=== PATIENT | female | born 1970 | race Caucasian/White ===

== ENCOUNTER 2022-05-26 00:48 | Emergency (ER) | payer SELFPAY ==
[~2022-05-26] VITALS: Ht 170.2 cm; Wt 86.4 kg
[2022-05-26 01:20] VITALS: TEMP 98.1
[2022-05-26 01:35] LABS: COLLECTION METHOD CLEAN CATCH
[2022-05-26 01:39] LABS: BASO # 0.1 K/mm3 (0.0-0.2); EOS # 0.3 K/mm3 (0.0-0.7); EOS % 3.3 % (0.0-4.0); GRAN # 6.9 K/mm3 (1.4-6.5); GRAN % 68.6 % (42.2-75.2); HEMATOCRIT 40.6 % (37.0-47.0); MEAN CELL VOLUME 97 fl (80.0-100.0); MEAN CORPUSCULAR HEMOGLOBIN 33 pg (27-31); MEAN CORPUSCULAR HGB CONC 35 g/dl (33.0-37.0); MEAN PLATELET VOLUME 9.1 fl (7.4-10.4); MONO # 0.7 K/mm3 (0.1-0.6); MONO % 6.4 % (1.7-9.3); PLATELET COUNT 363 K/mm3 (130-400); REDCELL DISTRIBUTION WIDTH-CV 12.8 % (11.5-14.5)
[2022-05-26 01:43] LABS: SQUAMOUS EPITHELIAL 0-2 /hpf (0-10); URINE BACTERIA None Seen /hpf (NONE SEEN); URINE RBC None Seen /hpf (0-2)
[2022-05-26 01:44] LABS: PH 5.5 (5.0-8.5); URINE APPEARANCE Clear (CLEAR/HAZY); URINE BLOOD Negative (NEGATIVE); URINE COLOR Yellow (YELLOW); URINE GLUCOSE Negative (NEGATIVE); URINE KETONE Negative (NEGATIVE); URINE NITRATE Negative (NEGATIVE); URINE PROTEIN(semi-quant) Negative (NEGATIVE); URINE UROBILINOGEN 0.2 E.U/dL (0.2-1.0)
[2022-05-26 01:57] LABS: ALBUMIN 3.3 gm/dL (3.5-5.0); BILIRUBIN,TOTAL 0.3 mg/dL (0.2-1.2); C-REACTIVE PROTEIN 5.39 mg/dL (0.00-0.50); CALCIUM 9.7 mg/dL (8.4-10.2); CREATININE, serum 0.77 mg/dL (0.57-1.11); TOTAL PROTEIN 7.2 gm/dL (6.2-8.1)
[2022-05-26] MEDS ORDERED: AMOXICILLIN 8751 TAB PO (03:15)
[2022-05-26] MEDS ORDERED: ZOFRAN ODT4 MG PO (03:15)
[2022-05-26] MEDS ORDERED: VANCOCIN H125 MG/CAP PO (03:21)
[2022-05-26 03:28] VITALS: BP 123/75; PULSE 75
== END 2022-05-26 03:38 | disposition home or self-care (01) ==
LOC: COL.ER 00:48
PROVIDERS: Nurse Practitioner
DX: K52.9 Noninfective gastroenteritis and colitis, unspecified (principal); F17.290 Nicotine dependence, other tobacco product, uncomplicated
CPT/HCPCS: J2270; J2405; J7030; Q9967

== ENCOUNTER 2022-06-06 22:03 | Inpatient (IN) | payer SELFPAY ==
[~2022-06-06] VITALS: Ht 170.2 cm; Wt 88.4 kg
[~2022-06-06 22:03] MED LIST: AMOXICILLIN 8751 TAB PO; NORCO 325 MG-51 TAB PO; VANCOCIN H125 MG/CAP PO; ZOFRAN ODT4 MG PO
[2022-06-06 22:30] VITALS: PULSE 79
[2022-06-06] MEDS ORDERED: PAXIL40 MG PO (22:31)
[2022-06-06] MEDS ORDERED: HCTZ 25MG TAB25 MG PO (22:32)
[2022-06-06] MEDS ORDERED: COZAAR100 MG PO (22:32)
[2022-06-06] MEDS ORDERED: NORVASC 10MG10 MG PO (22:32)
[2022-06-06 22:36] LABS: BASO # 0.1 K/mm3 (0.0-0.2); EOS # 0.2 K/mm3 (0.0-0.7); EOS % 2.9 % (0.0-4.0); GRAN # 5.9 K/mm3 (1.4-6.5); HEMATOCRIT 45.1 % (37.0-47.0); HEMOGLOBIN 14.9 g/dl (12.5-16.0); LYMPH # 1.7 K/mm3 (1.2-3.4); LYMPH % 19.8 % (20.0-51.0); MEAN CELL VOLUME 101 fl (80.0-100.0); MEAN CORPUSCULAR HEMOGLOBIN 33 pg (27-31); MEAN CORPUSCULAR HGB CONC 33 g/dl (33.0-37.0); MEAN PLATELET VOLUME 9.2 fl (7.4-10.4); MONO # 0.4 K/mm3 (0.1-0.6); MONO % 4.7 % (1.7-9.3); PLATELET COUNT 315 K/mm3 (130-400); RED BLOOD COUNT 4.47 M/mm3 (4.10-5.30); REDCELL DISTRIBUTION WIDTH-CV 13.8 % (11.5-14.5)
[2022-06-06 22:49] LABS: ALANINE AMINOTRANSFERASE 12 U/L (0-55); ALBUMIN 2.7 gm/dL (3.5-5.0); ALCOHOL(ethanol),MEDICAL 213 mg/dL (0-10); ALKALINE PHOSPHATASE 95 U/L (40-150); ANION GAP 15 mmol/L (7-16); AST,SGOT 11 U/L (5-34); BILIRUBIN,TOTAL 0.3 mg/dL (0.2-1.2); BLOOD UREA NITROGEN 5 mg/dL (10-20); CALCIUM 8.9 mg/dL (8.4-10.2); CARBON DIOXIDE 18 mmol/L (22-29); CHLORIDE 109 mmol/L (98-107); CREATININE, serum 0.65 mg/dL (0.57-1.11); GLUCOSE 120 mg/dL (70-99); POTASSIUM 3.1 mmol/L (3.5-4.5); SALICYLATE < 5.0 mg/dL (15.0-30.0); SODIUM 142 mmol/L (136-145); TOTAL PROTEIN 6.7 gm/dL (6.2-8.1)
[2022-06-06 22:56] LABS: COLLECTION METHOD CLEAN CATCH
[2022-06-06 23:06] LABS: URINE APPEARANCE Clear (CLEAR/HAZY); URINE BLOOD Negative (NEGATIVE); URINE COLOR Yellow (YELLOW); URINE GLUCOSE Negative (NEGATIVE); URINE KETONE Negative (NEGATIVE); URINE NITRATE Negative (NEGATIVE); URINE PROTEIN(semi-quant) Negative (NEGATIVE); URINE UROBILINOGEN 0.2 E.U/dL (0.2-1.0)
[2022-06-06 23:10] LABS: SQUAMOUS EPITHELIAL None Seen /hpf (0-10); URINE BACTERIA Rare /hpf (NONE SEEN); URINE RBC None Seen /hpf (0-2)
[2022-06-06 23:22] LABS: TRICYCLIC ANTIDEPRESS URINE NEGATIVE
[2022-06-07] VITALS (1066 sets, daily range): BP systolic 86–120; BP diastolic 48–70; PULSE 68–100; TEMP 97.8–99; O2SAT 88–100
[2022-06-07 06:31] LABS: CLOSTRIDIUM DIFF A/B NEG; CLOSTRIDIUM DIFF A/B INTERP No C.diff present
[2022-06-07 06:32] LABS: BASO # 0.1 K/mm3 (0.0-0.2); BASO % 1.2 % (0.0-2.0); EOS # 0.2 K/mm3 (0.0-0.7); EOS % 2.9 % (0.0-4.0); GRAN # 5.5 K/mm3 (1.4-6.5); GRAN % 71.4 % (42.2-75.2); LYMPH # 1.3 K/mm3 (1.2-3.4); MEAN CELL VOLUME 99 fl (80.0-100.0); MEAN CORPUSCULAR HGB CONC 34 g/dl (33.0-37.0); MEAN PLATELET VOLUME 9.1 fl (7.4-10.4); MONO # 0.5 K/mm3 (0.1-0.6); MONO % 6.8 % (1.7-9.3); PLATELET COUNT 310 K/mm3 (130-400); RED BLOOD COUNT 3.65 M/mm3 (4.10-5.30); REDCELL DISTRIBUTION WIDTH-CV 13.6 % (11.5-14.5)
[2022-06-07 06:33] LABS: HEMOGLOBIN 12.1 g/dl (12.5-16.0); MEAN CORPUSCULAR HEMOGLOBIN 33 pg (27-31)
[2022-06-07 06:56] LABS: ANION GAP 7 mmol/L (7-16); BLOOD UREA NITROGEN 6 mg/dL (10-20); CALCIUM 7.9 mg/dL (8.4-10.2); CARBON DIOXIDE 24 mmol/L (22-29); CHLORIDE 108 mmol/L (98-107); CREATININE, serum 0.77 mg/dL (0.57-1.11); GLUCOSE 140 mg/dL (70-99); POTASSIUM 3.7 mmol/L (3.5-4.5); SODIUM 139 mmol/L (136-145)
[2022-06-07 07:04] LABS: ACETAMINOPHEN < 1.0 ug/mL (10-30)
--- NOTE | 2022-06-07 10:55 | NUR ---
Patient was admitted to ICU from [facility] on 06-07-22. A Class Lineman met with Patient at bedside to conduct Care Managment Assessment and discuss discharge planning. [place] Millie P: [phone] who she stated is the best person to contact. Patient stated that she ahs no family in the local area and does not want them contacted. SW inquired about AD paperwork. Patient declined AD paperwork. PAtient reports no PCP at this time and has no insurance. Patient denies the use of O2, DME, and home health services prior to admission. Patient reports being independent with ADL/IADLs prior to admission. SW contacted Millie to initiate familial collaboration and coordination. Millie reported that Patient has 2 adult daughters, Laura P: [phone] whome Millie believes to be the DPOA for this patient, and Raysa P: [phone]. SW contacted Laura who verrified that she has a POA but is unsure if it for healthcare decicions. Laura reported that Patient has not completed [employer] application prior to admission. Laura agrees to bring her POA when she visits and requests Advanced Directive information when she arrives.
--- NOTE | 2022-06-07 17:14 | NUR ---
PTs daughters met with the pump house operator and this RN with frustrations on not being contacted before the patient's friend by social work even though they are together the DPOAs. This paperwork is now put on the chart. Pts edsoncristin Laura and Monae are also upset that they are unable to visit their mom. This RN explained that the patient has restricted visitors at this time until she is able to be screened by Da. This RN did speak with Monae earlier in the day and reiterated this information many times. Monae expressed concern that "Yandel with case management or social work" called and told her that they could come and visit so they made a 3 hour trip. This RN apologized for any miscommunication that may have happened, but that the PT would remain on the sucide precautions at this time. Dr. Guevara had met with the patient today and did not feel comfortable removing the precautions. The patient had given permission to this RN to discuss this information with her daughters.
--- NOTE | 2022-06-07 18:40 | NUR ---
PATIENTS DAUGHTER ARASH CALLED THIS RN AT 1636 STATING SHE AND HER SISTER WERE DOWNSTAIRS AT ADMISSIONS TO VISIT THEIR MOTHER. ARASH STATED "NAEL THE FINISHING ROOM SUPERVISOR OR IRRADIATED FUEL HANDLER SAID WE COULD VISIT OUR MOM ONE TIME". THIS NURSE CONSULTED WITH PRECEPTOR, ALISIA, AND CERTIFIED ALCOHOL COUNSELOR, JERSON. AT THIS TIME THE ABOVE NURSES AND THIS NURSE MET WITH PATIENT'S DAUGHTERS IN ADMISSION AREA OF THE HOSPITAL TO REVIEW POLICY PROTOCOLS FOR THIS PATIENT. DAUGHTERS WERE UPSET STATING THEY "DROVE THREE HOURS TO GET HERE BECAUSE WE WERE TOLD WE COULD VISIT HER ONCE". CONCEPCION CRUMP AND CERTIFIED ALCOHOL COUNSELOR, JERSON, REVIEWED POLICY WITH FAMILY MEMBERS AND EXPRESSED UNDERSTANDING OF THEIR FRUSTRATIONS. COPIES OF [facility] PAPERWORK AND LIVING WILL WERE OBTAINED AT THIS TIME.
[2022-06-08] VITALS (921 sets, daily range): BP systolic 95–111; BP diastolic 54–78; PULSE 58–86; TEMP 97.4–98.9; O2SAT 75–100
--- NOTE | 2022-06-08 04:26 | NUR ---
PT RESTING OFF AND ON THIS PM SHIFT. CONTINUES TO HAVE LIQUID STOOLS, NOT YET CLEAR. FINISHED ORDERED MIRALAX BY 2330 THIS SHIFT. VITALS HAVE BEEN STABLE, PULSE OXIMETRY 93-96% ON RA. PT HAD ONE EPISODE OF HEADACHE, TYLENOL ADMINISTERED AND GAVE RELIEF. CONSENT FOR COLONOSCOPY SIGNED AND ON CHART, TIME PLANNED FOR 0800. PT HAS NO QUESTIONS OR COMPLAINS.
[2022-06-08 06:17] LABS: BASO # 0.1 K/mm3 (0.0-0.2); BASO % 0.8 % (0.0-2.0); EOS # 0.1 K/mm3 (0.0-0.7); EOS % 1.9 % (0.0-4.0); GRAN # 5.5 K/mm3 (1.4-6.5); GRAN % 73.6 % (42.2-75.2); HEMOGLOBIN 12.3 g/dl (12.5-16.0); LYMPH # 1.2 K/mm3 (1.2-3.4); LYMPH % 15.6 % (20.0-51.0); MEAN CELL VOLUME 99 fl (80.0-100.0); MEAN CORPUSCULAR HEMOGLOBIN 33 pg (27-31); MEAN CORPUSCULAR HGB CONC 34 g/dl (33.0-37.0); MEAN PLATELET VOLUME 9.5 fl (7.4-10.4); MONO # 0.6 K/mm3 (0.1-0.6); MONO % 7.8 % (1.7-9.3); PLATELET COUNT 269 K/mm3 (130-400); RED BLOOD COUNT 3.69 M/mm3 (4.10-5.30); REDCELL DISTRIBUTION WIDTH-CV 13.6 % (11.5-14.5)
[2022-06-08 06:21] LABS: HEMATOCRIT 36.6 % (37.0-47.0)
[2022-06-08 06:26] LABS: INR 1.2 (0.8-3.0); PROTHROMBIN TIME 13.6 SECONDS (9.7-12.8)
[2022-06-08 06:37] LABS: CALCIUM 8.1 mg/dL (8.4-10.2); CREATININE, serum 0.7 mg/dL (0.57-1.11); POTASSIUM 3.2 mmol/L (3.5-4.5)
--- NOTE | 2022-06-08 08:10 | NUR ---
BEDSIDE REPORT RECIEVED FROM CONCEPCION DUMONT. PT RESTING IN BED, VSS ON ROOM AIR. FLUIDS INFUSING ORDERED TO RIJ CENTRAL LINE. LUCAS CATHETER IN PLACE TO DEPENDENT DRAINAGE. PT DENIES ANY PAIN, NAUSEA, VOMITING. SUICIDE PRECAUTIONS IN PLACE. PT DENIES ANY SUICIDAL IDEATION AT THIS TIME.
--- NOTE | 2022-06-08 08:18 | NUR ---
PT TAKEN BY OCCUPATIONAL MEDICINE SPECIALIST VIA BED FOR COLONOSCOPY AT 0752.
--- NOTE | 2022-06-08 15:35 | NUR ---
ATTEMPTED EKG AGAIN X2. PT UNCOOPERATIVE, PT PULLED EKG LEADS/STICKERS OFF AND ROLLED ONTO SIDE MULTIPLE TIMES. RN AND MD AWARE. PT REMAINS ON TELE MONITOR WITH NO ISSUES.
--- NOTE | 2022-06-08 15:39 | NUR ---
0845 PT RETURNED TO ROOM AFTER COLONOSCOPY. VS AND POST OP CHECKS DONE PER PROTOCOL. PT IS ABLE TOLERATE PO FLUIDS, IV FLUIDS D/C'D PER DR SEPULVEDA. 1130 DIET ADVANCED TO BLAND DIET. PT ATE 50% OF TRAY. DENIES N/V. 1230 RECEIVED CALL FROM ARSENIO AT [facility]. THEY ARE UNABLE TO SCREEN PT AT THIS TIME SHE IS STILL RECEIVING MEDICAL CARE. PER ARSENIO, OUR PHYSICIAN CAN CANCEL SUICIDE PRECAUTION ORDER IF PT IS DENYING SUICIDAL OR HOMICIDAL IDEATION. PT HAS BEEN STABLE THROUGHOUT THE MORNING AND STATES SHE DOES NOT WANT TO HARM HERSELF. DR VEE PLACED ORDER TO REMOVE PT FROM SUICIDAL PRECAUTIONS. PERSONAL BELONGINGS RETURNED TO PT.
--- NOTE | 2022-06-08 17:20 | NUR ---
Pt transferred to room 316 from ICU. Report rec'd from CONCEPCION Bishop in ICU.
--- NOTE | 2022-06-08 17:26 | NUR ---
PT HAS HAD 2 LOOSE STOOLS SINCE COLONOSCOPY. LUCAS CATHETER DISCONTINUED AT 1100, PT HAS VOIDED SEVERAL TIMES SINCE THAT TIME. TOLERATES FOOD AND PO FLUIDS WELL, DENIES N/V. PRN NORCO GIVEN AT 1709 FOR ABDOMINAL PAIN. PT TRANSFERED TO ROOM 316 AT 1719 VIA , REPORT CALLED TO NURSE RUBIO.
--- NOTE | 2022-06-08 17:50 | NUR ---
Assessment complete. A/O x4. VSS. TLC Rt IJ without s/s complications. Reports she is still having liquid stool "coffee" color. Tolerating bland diet- denies nausea. Rates pain 06/21. Tele SR. Up in room independently.
--- NOTE | 2022-06-08 18:09 | NUR ---
Pt rates pain 3/10 on pain scale. Up in room independently. Denies needs at this time.
--- NOTE | 2022-06-08 23:32 | NUR ---
NURSING SHIFT ASSESSMENT COMPLETED. THE PATIENT DENIED PAIN OR DISCOMFORT. THE PATIENT ASKED FOR A SNACK AND A BLAND SNACK WAS PROVIDED. NO S/S OF DISTRESS NOTED. THE PLAN OF CARE WAS DISCUSSED WELL EVENING MEDICATIONS. PERSONAL BELONGINGS AND CALL LIGHT WITHIN REACH. BED IN LOW POSITION. WILL MONITOR.
[2022-06-09 03:38] VITALS: BP 102/59; PULSE 72; TEMP 98
[2022-06-09 05:16] LABS: BASO % 0.5 % (0.0-2.0); GRAN # 7.3 K/mm3 (1.4-6.5); GRAN % 84.9 % (42.2-75.2); HEMOGLOBIN 11.8 g/dl (12.5-16.0); LYMPH # 0.7 K/mm3 (1.2-3.4); LYMPH % 8.5 % (20.0-51.0); MEAN CELL VOLUME 99 fl (80.0-100.0); MEAN CORPUSCULAR HEMOGLOBIN 33 pg (27-31); MEAN CORPUSCULAR HGB CONC 33 g/dl (33.0-37.0); MEAN PLATELET VOLUME 9.4 fl (7.4-10.4); MONO # 0.5 K/mm3 (0.1-0.6); MONO % 5.6 % (1.7-9.3); PLATELET COUNT 287 K/mm3 (130-400); RED BLOOD COUNT 3.61 M/mm3 (4.10-5.30); REDCELL DISTRIBUTION WIDTH-CV 13.3 % (11.5-14.5)
[2022-06-09 05:17] LABS: HEMATOCRIT 35.9 % (37.0-47.0)
[2022-06-09 05:28] LABS: CALCIUM 8.5 mg/dL (8.4-10.2); CREATININE, serum 0.7 mg/dL (0.57-1.11); POTASSIUM 3.9 mmol/L (3.5-4.5)
[2022-06-09 08:01] VITALS: BP 117/64; PULSE 73; TEMP 97.3
--- NOTE | 2022-06-09 08:12 | NUR ---
Assessment complete. A/O x4. Reports having less loose stools than normal. Tolerates bland diet without c/o nausea. Denies pain. Sitting up in bed eating breakfast.
--- NOTE | 2022-06-09 09:51 | NUR ---
Pt to CT scan via w/c with Yenny.
--- NOTE | 2022-06-09 10:05 | NUR ---
Pt returns to room from CT scan.
[2022-06-09 12:15] VITALS: BP 115/61; PULSE 65; TEMP 98.1
--- NOTE | 2022-06-09 15:18 | NUR ---
Pt requests code status be changed from DNR to Full Code. Dr. Quiroz notified.
--- NOTE | 2022-06-09 15:18 | NUR ---
Luke Pedraza for consultation notification.
[2022-06-09 15:40] VITALS: BP 110/60; PULSE 77; TEMP 97.9
--- NOTE | 2022-06-09 17:23 | NUR ---
Dr. Pedraza paged- still no response from earlier page.
--- NOTE | 2022-06-09 19:02 | NUR ---
Paged Dr. Pedraza twice with no response. Reported off to CONCEPCION Smith and she is going to have day shift staff call consult in am.
[2022-06-09 20:34] VITALS: BP 101/51; PULSE 74; TEMP 98.1
[2022-06-10] VITALS (7 sets, daily range): BP systolic 108–131; BP diastolic 58–74; PULSE 61–75; TEMP 97.5–98.4
--- NOTE | 2022-06-10 02:28 | NUR ---
NURSING SHIFT ASSESSMENT COMPLETED. THE PATIENT REPORTED PAIN TO HER LOWER EXTREMITIES. PRN PAIN MEDICATION PROVIDED. FRESH WATER WAS PROVIDED. NO OTHER NEEDS AT THIS TIME. THE PLAN OF CARE AND EVENING MEDICATIONS DISCUSSED. WILL MONITOR.
--- NOTE | 2022-06-10 09:07 | NUR ---
Pt laying in bed. Morning medications administered per eMAR. Shift assessment completed. NS infusing at 100mL/hr in RIJ; no edema or redness. No further request at this time. Call light within reach.
[2022-06-10 09:12] LABS: HEPATITIS B CORE AB,TOTAL Negative (Negative); HEPATITIS B SURFACE ANTIBODY 474.9 (()); HEPATITIS B SURFACE ANTIGEN Negative (Negative); HEPATITIS C VIRUS ANTIBODY Negative (Negative)
--- NOTE | 2022-06-10 09:24 | NUR ---
Physician working on transfering patient to a higher level of care. Email sent and phone call made to Bruno to meet with this patient first thing.
--- NOTE | 2022-06-10 12:03 | NUR ---
IJ flushed with good blood return, no s/s of complications at this time.
[2022-06-10 14:41] LABS: TB GOLD INTERPRETATION Negative (Negative)
--- NOTE | 2022-06-10 20:30 | NUR ---
Initial shift assessment done- denies pain,denies SOB, VSS, tele on, States has loose stools every hour and that is nothing new to her. Up walking the halls- did take a quick shower but made sure no water got close to her TLC on her right neck. Did want to wash hair but told her to just wait till tomorrow since line will probably come out tomorrow.
[2022-06-11 05:25] VITALS: BP 119/71; PULSE 63; TEMP 97.5
--- NOTE | 2022-06-11 05:48 | NUR ---
Quiet night-- did not sleep till just a few hours ago-- no requests, VSS, Up on own-taking walks-- states going home today
[2022-06-11 06:50] LABS: BASO % 0.3 % (0.0-2.0); C-REACTIVE PROTEIN 0.33 mg/dL (0.00-0.50); CALCIUM 8.1 mg/dL (8.4-10.2); CREATININE, serum 0.63 mg/dL (0.57-1.11); HEMOGLOBIN 11.5 g/dl (12.5-16.0); LYMPH # 0.9 K/mm3 (1.2-3.4); LYMPH % 14.1 % (20.0-51.0); MEAN CELL VOLUME 100 fl (80.0-100.0); MEAN CORPUSCULAR HEMOGLOBIN 33 pg (27-31); MEAN CORPUSCULAR HGB CONC 33 g/dl (33.0-37.0); MEAN PLATELET VOLUME 9.7 fl (7.4-10.4); MONO # 0.4 K/mm3 (0.1-0.6); MONO % 5.7 % (1.7-9.3); PLATELET COUNT 294 K/mm3 (130-400); POTASSIUM 4.3 mmol/L (3.5-4.5); RED BLOOD COUNT 3.48 M/mm3 (4.10-5.30); REDCELL DISTRIBUTION WIDTH-CV 13.3 % (11.5-14.5)
[2022-06-11 06:54] LABS: HEMATOCRIT 34.7 % (37.0-47.0)
[2022-06-11 07:09] VITALS: BP 127/81; PULSE 70; TEMP 97.6
--- NOTE | 2022-06-11 08:24 | NUR ---
Pt awake and laying in bed. Morning medication adminsitered per eMAR. Shift assessment completed. VSS. NS infusing @ 100mL/hr in R IJ. Telemetry remains on. Denies c/o pain at this time. Call light within reach.
[2022-06-11] MEDS ORDERED: ASPIRIN 81M81 MG/TA2 PO (08:28)
[2022-06-11] MEDS ORDERED: LIPITOR 40MG TA40 MG PO (08:28)
[2022-06-11] MEDS ORDERED: COZAAR 50MG50 MG/TAB PO (08:29)
[2022-06-11] MEDS ORDERED: VITAMIND3 5000 PO (08:31)
[2022-06-11] MEDS ORDERED: PROTONIX 40MG T40 MG PO (08:34)
[2022-06-11] MEDS ORDERED: PREDNISONE10 MG PO (08:39)
[2022-06-11 11:03] VITALS: BP 138/77; PULSE 71; TEMP 97.5
--- NOTE | 2022-06-11 13:05 | NUR ---
Pt discharge instructions given. All questions answered.
--- NOTE | 2022-06-11 13:27 | NUR ---
Unix Manager attended clinical rounds with the team and patient to discharge home today. CHERYL met with patient who advised she attempted to contact Bruno, Financial Counselor to discuss completed FAA, but could not reach her. Patient provided completed FAA to CHERYL who then scanned and emailed it to Bruno. CHERYL also discussed medications with patient who advised she could not afford any medications prescribed to her today. CHERYL completed medication voucher totaling $71.51 and faxed it to Richard at [employer]. CHERYL provided the voucher to patient who advised her friend, Millie will take her this afternoon. Discharge Plan: Home
--- NOTE | 2022-06-11 13:39 | NUR ---
CONCEPCION Renee removed central line.
[2022-06-11 14:11] LABS: HEPATITIS AB (HAV) IGG INDEX 0.28 Index (<=1.00)
== END 2022-06-11 13:38 | disposition home or self-care (01) | DRG 917 ==
LOC: COL.ER 22:03 → ICU 23:39 → MEDICAL 06-08 18:52
PROVIDERS: Internal Medicine Gastroenterology; Nurse Practitioner Family; Nurse Practitioner Primary Care; Physician Assistant; Student in an Organized Health Care Education/Training Program; ADMIT Internal Medicine
PROC: 02H633Z Insertion of Infusion Device into Right Atrium, Percutaneous Approach (ICD-10-PCS; 2022-06-07)
PROC: 0DBL8ZX Excision of Transverse Colon, Via Natural or Artificial Opening Endoscopic, Diagnostic (ICD-10-PCS; 2022-06-08)
PROC: 0DBP8ZX Excision of Rectum, Via Natural or Artificial Opening Endoscopic, Diagnostic (ICD-10-PCS; 2022-06-08)
PROC: 0DBM8ZX Excision of Descending Colon, Via Natural or Artificial Opening Endoscopic, Diagnostic (ICD-10-PCS; 2022-06-08)
PROC: 0DBK8ZX Excision of Ascending Colon, Via Natural or Artificial Opening Endoscopic, Diagnostic (ICD-10-PCS; principal; 2022-06-08 08:00)
DX: T43.222A Poisoning by selective serotonin reuptake inhibitors, intentional self-harm, initial encounter (principal); I77.72 Dissection of iliac artery; R57.0 Cardiogenic shock; E87.20 Acidosis, unspecified; K51.00 Ulcerative (chronic) pancolitis without complications; K92.1 Melena; F32.A Depression, unspecified; F41.9 Anxiety disorder, unspecified; I10 Essential (primary) hypertension; F17.210 Nicotine dependence, cigarettes, uncomplicated; E55.9 Vitamin D deficiency, unspecified; E87.6 Hypokalemia; I95.9 Hypotension, unspecified; E16.2 Hypoglycemia, unspecified; T40.2X2A Poisoning by other opioids, intentional self-harm, initial encounter; Z66 Do not resuscitate; T46.5X2A Poisoning by other antihypertensive drugs, intentional self-harm, initial encounter; I70.0 Atherosclerosis of aorta; T50.2X2A Poisoning by carbonic-anhydrase inhibitors, benzothiadiazides and other diuretics, intentional self-harm, initial encounter; T46.1X2A Poisoning by calcium-channel blockers, intentional self-harm, initial encounter; T51.92XA Toxic effect of unspecified alcohol, intentional self-harm, initial encounter; Z98.51 Tubal ligation status; Z91.51 Personal history of suicidal behavior; Z90.49 Acquired absence of other specified parts of digestive tract
CPT/HCPCS: J1610; J1644; J1650; J1815; J2270; J2310; J2550; J2704; J2920; J3411; J3480; J7030; J7042; J7060; J7070; Q9967

== ENCOUNTER 2022-12-25 18:38 | Observation (INO) | payer OTHER ==
[~2022-12-25] VITALS: Ht 17.8 cm; Wt 81.9 kg
[~2022-12-25 18:38] MED LIST changes: +ASPIRIN 81M81 MG/TA2 PO; +COZAAR 50MG50 MG/TAB PO; +COZAAR100 MG PO; +HCTZ 25MG TAB25 MG PO; +LIPITOR 40MG TA40 MG PO; +NORVASC 10MG10 MG PO; +PAXIL40 MG PO; +PREDNISONE10 MG PO; +PROTONIX 40MG T40 MG PO; +VITAMIND3 5000 PO
[2022-12-25 19:17] LABS: INR 0.9 (0.8-3.0); PROTHROMBIN TIME 9.9 SECONDS (9.7-12.8)
[2022-12-25 19:18] LABS: BASO # 0.1 K/mm3 (0.0-0.2); BASO % 1.1 % (0.0-2.0); EOS # 0.4 K/mm3 (0.0-0.7); EOS % 5.5 % (0.0-4.0); GRAN # 3.3 K/mm3 (1.4-6.5); GRAN % 51.2 % (42.2-75.2); HEMATOCRIT 45.6 % (37.0-47.0); LYMPH # 2.1 K/mm3 (1.2-3.4); MEAN CELL VOLUME 98 fl (80.0-100.0); MEAN CORPUSCULAR HEMOGLOBIN 32 pg (27-31); MEAN CORPUSCULAR HGB CONC 33 g/dl (33.0-37.0); MEAN PLATELET VOLUME 9.5 fl (7.4-10.4); MONO # 0.6 K/mm3 (0.1-0.6); MONO % 8.9 % (1.7-9.3); PLATELET COUNT 264 K/mm3 (130-400); RED BLOOD COUNT 4.66 M/mm3 (4.10-5.30); REDCELL DISTRIBUTION WIDTH-CV 13.9 % (11.5-14.5)
[2022-12-25 19:19] LABS: PARTIAL THROMBOPLASTIN TIME 32.5 SECONDS (26.0-37.0)
[2022-12-25 19:33] LABS: ALBUMIN 3.8 gm/dL (3.5-5.0); BILIRUBIN,TOTAL 0.4 mg/dL (0.2-1.2); CREATININE, serum 0.79 mg/dL (0.57-1.11); POTASSIUM 3.8 mmol/L (3.5-4.5); TOTAL PROTEIN 7.4 gm/dL (6.2-8.1)
[2022-12-26] VITALS (7 sets, daily range): BP systolic 117–152; BP diastolic 54–83; PULSE 58–73; TEMP 97.5–97.7
[2022-12-26] MEDS ORDERED: LIPITOR 40MG TA40 MG PO (00:23)
[2022-12-26] MEDS ORDERED: PLETAL50 MG PO (00:25)
[2022-12-26] MEDS ORDERED: ZOLOFT 50MG50 MG PO (00:27)
[2022-12-26] MEDS ORDERED: HUMIRA(CF)10 MG/0.1 SQ (00:29)
[2022-12-26 00:55] LABS: COLLECTION METHOD CLEAN CATCH
[2022-12-26 00:59] LABS: SQUAMOUS EPITHELIAL 0-2 /hpf (0-10); URINE BACTERIA None Seen /hpf (NONE SEEN); URINE RBC 0-2 /hpf (0-2)
[2022-12-26 01:06] LABS: URINE APPEARANCE Clear (CLEAR/HAZY); URINE BLOOD TRACE-INTACT (NEGATIVE); URINE COLOR Yellow (YELLOW); URINE GLUCOSE Negative (NEGATIVE); URINE KETONE Negative (NEGATIVE); URINE NITRATE Negative (NEGATIVE); URINE PROTEIN(semi-quant) Negative (NEGATIVE); URINE UROBILINOGEN 0.2 E.U/dL (0.2-1.0)
--- NOTE | 2022-12-26 02:52 | NUR ---
UPON ADMISSION, JAD DENIED PAIN AND LUNG SOUNDS WERE CLEAR WITH NO EVIDENT INCREASE IN WORK OF BREATHING OR CYANOSIS. HER VITALS WERE STABLE TO INCLUDE AN O2 SAT OF 98% ON 2L NC. NS 1000ML @ 100ML/HR WAS STARTED AND JAD REQUESTED AND RECIEVED A BOXED MEAL AND BEVERAGE. SHE IS ON TELE AND IS CURRENTLY NORMAL SINUS. SHE SEEMS AGREEABLE AND IS A&O X 4.
--- NOTE | 2022-12-26 05:42 | NUR ---
TOWARDS END OF SHIFT, JAD WAS ASLEEP AND WAS SLIGHTLY AGITATED WHEN AROUSED TO PLACE SCDs. VITAL SIGNS WERE WNL, O2 SAT WAS 91% ON O2 NC. CALL LIGHT WAS WITHIN REACH AND BED IN LOWEST POSITION. EDUCATION PROVIDED ABOUT THE NEED FOR VTEs.
[2022-12-26 06:42] LABS: BASO % 0.4 % (0.0-2.0); GRAN # 3.6 K/mm3 (1.4-6.5); GRAN % 77.3 % (42.2-75.2); HEMATOCRIT 40.1 % (37.0-47.0); HEMOGLOBIN 13.5 g/dl (12.5-16.0); LYMPH # 0.9 K/mm3 (1.2-3.4); LYMPH % 18.9 % (20.0-51.0); MEAN CELL VOLUME 98 fl (80.0-100.0); MEAN CORPUSCULAR HEMOGLOBIN 33 pg (27-31); MEAN CORPUSCULAR HGB CONC 34 g/dl (33.0-37.0); MEAN PLATELET VOLUME 9.7 fl (7.4-10.4); MONO # 0.1 K/mm3 (0.1-0.6); PLATELET COUNT 233 K/mm3 (130-400); REDCELL DISTRIBUTION WIDTH-CV 13.7 % (11.5-14.5)
[2022-12-26 07:05] LABS: CALCIUM 9.1 mg/dL (8.4-10.2); CREATININE, serum 0.67 mg/dL (0.57-1.11); POTASSIUM 4.3 mmol/L (3.5-4.5)
[2022-12-26 07:17] LABS: TSH w REFLEX 0.294 uIU/mL (0.350-4.940)
--- NOTE | 2022-12-26 08:00 | NUR ---
UPON ENTERING ROOM PATIENT WAS SET UP ON THE BED EATING HER BREAKFAST. PATIENT ALERT AND ORIENTED X4. SHE DENIES PAIN AT THIS TIME. CALL LIGHT WITHIN REACH AND BED AT LOWEST POSITION.
[2022-12-26] MEDS ORDERED: LIPITOR 80MG80 MG PO (10:21)
[2022-12-26] MEDS ORDERED: PREDNISONE20 MG PO (10:23)
--- NOTE | 2022-12-26 11:20 | NUR ---
equipment worker was notified that RT determined patient does not need oxygen when returning home. equipment worker met with patient to discuss discharge planning. Patient confirmed she lives in [place] and has a roommate named Millie. Patient expressed Dr. Deal is going to assist her with sending a referral for a primary care physician. Patient confirmed her preferred pharmacy is [facility] and has not struggled to afford her medications. Patient reports she is independent with ADLS and does not have any DME at home. Patient would like to return home at time of discharge. Discharge Plan: Home
--- NOTE | 2022-12-26 13:30 | NUR ---
Initial visit: Laceworker stopped by room on rounds. Pt was resting and content. Pt has no needs right now. Laceworker will follow up as needed.
--- NOTE | 2022-12-26 13:48 | NUR ---
PATIENT DISCHARGED INSTRUCTIONS GIVEN. PATIENT VERBALIZED UNDERSTANDING. PATIENT ESCORTED OUT BY STAFF.
== END 2022-12-26 13:48 | disposition home or self-care (01) ==
LOC: COL.ER 18:38 → MEDICAL 12-26 00:47
PROVIDERS: Nurse Practitioner Family; Physician Assistant; ADMIT Internal Medicine
DX: U07.0 Vaping-related disorder (principal); J96.01 Acute respiratory failure with hypoxia; R91.8 Other nonspecific abnormal finding of lung field; I10 Essential (primary) hypertension; E78.5 Hyperlipidemia, unspecified; F32.A Depression, unspecified; F17.290 Nicotine dependence, other tobacco product, uncomplicated; Z20.822 Contact with and (suspected) exposure to COVID-19; Z79.899 Other long term (current) drug therapy
CPT/HCPCS: G0378; J1100; J1200; J7030; J7512; Q9967

== ENCOUNTER 2023-04-04 05:48 | Day surgery (SDC) | payer OTHER ==
[~2023-04-04] VITALS: Ht 17.8 cm; Wt 79.3 kg
[~2023-04-04 05:48] MED LIST changes: +HUMIRA(CF)10 MG/0.1 SQ; +LIPITOR 80MG80 MG PO; +PLETAL50 MG PO; +PREDNISONE20 MG PO; +ZOLOFT 50MG50 MG PO
[2023-04-04 06:11] VITALS: BP 138/80; PULSE 99; TEMP 97.3
[2023-04-04] MEDS ORDERED: ZOFRAN 4MG T4 MG/TAB PO (06:20)
[2023-04-04 09:00] VITALS: BP 112/70; PULSE 78; TEMP 97.4
[2023-04-04 09:15] VITALS: BP 122/77; PULSE 76
[2023-04-04 09:30] VITALS: BP 118/78; PULSE 74
--- NOTE | 2023-04-04 09:52 | NUR ---
0900-PATIENT ARRIVED VIA CART TO [facility], ALERT AND ORIENTED ON ARRIVAL. AMBULATED WITH SBA TO RECLINER, WARM BLANKET PROVIDED. VITAL SIGNS TAKEN, VSS. PATIENT DENIES PAIN OR NAUSEA. 914-PT TOLERATING PO INTAKE WELL, DENIES COMPLAINTS. VSS. PATIENT'S FRIEND BROUGHT TO BEDSIDE. 939-DISCHARGE PAPERWORK REVIEWED WITH PT AND FRIEND. QUESTIONS INVITED. IV CATHETER DISCONTINUED, CATHETER TIP INTACT. PRESSURE BANDAGE APPLIED. PT CHANGED INTO CLOTHING INDEPENDENTLY. 946-PATIENT DISCHARGED HOME TO [facility] VIA WHEELCHAIR, ACCOMPANIED BY FRIEND. ALL BELONGINGS AND DC PAPERWORK SENT WITH PT
== END 2023-04-04 09:47 | disposition home or self-care (01) ==
LOC: SDCO 05:48
DX: K50.10 Crohn's disease of large intestine without complications (principal); D12.3 Benign neoplasm of transverse colon; K63.89 Other specified diseases of intestine; K57.30 Diverticulosis of large intestine without perforation or abscess without bleeding; K62.89 Other specified diseases of anus and rectum; K64.4 Residual hemorrhoidal skin tags; K52.9 Noninfective gastroenteritis and colitis, unspecified; R19.4 Change in bowel habit; F17.290 Nicotine dependence, other tobacco product, uncomplicated; Z79.899 Other long term (current) drug therapy; Z90.49 Acquired absence of other specified parts of digestive tract
CPT/HCPCS: J2704; J7120